=== PATIENT | female | born 1980 | race Caucasian/White ===

== ENCOUNTER 2017-09-10 07:09 | Inpatient (IN) | payer OTHER ==
[2017-09-10] MEDS ORDERED: Oxytocin in LR* 20 UNITS/1,000 ML BAG IVPB SCH ×2 (08:00→17:00)
[2017-09-10 08:56] LABS: Hematocrit 36 % (35-47); Hemoglobin 12.5 g/dl (12.0-16.0); Mean Corpuscular HGB Conc 35 g/dl (31-36); Mean Corpuscular Hemoglobin 35 pg (27-31); Mean Corpuscular Volume 99 fL (80-97); Mean Platelet Volume 8 um3 (7.4-10.4); Red Blood Count 3.62 10^6/ul (4.0-5.4); Red Cell Distribution Width 13 % (10.5-15)
[2017-09-10 10:00] LABS: Benzodiazepine Urine Screen None Detected (None Detect)
[2017-09-10] MEDS ORDERED: Witch Hazel PAD* JAR TOPICAL PRN (16:14)
[2017-09-10] MEDS ORDERED: Glycerin ADULT SUPP PR PRN (16:14)
[2017-09-10] MEDS ORDERED: Acetaminophen TAB* 325 MG PO PRN (16:14)
[2017-09-10] MEDS ORDERED: Dibucaine 1% 28.35 GM TUBE PR PRN (16:14)
[2017-09-10] MEDS: Docusate CAP* 100 MG PO SCH (21:02)
[2017-09-10] MEDS: Ibuprofen TAB* 600 MG PO PRN (21:03)
[2017-09-10] MEDS: Simethicone TAB* 80 MG TAB.CHEW PO SCH ×3 (23:01→23:03)
[2017-09-11] MEDS: Ibuprofen TAB* 600 MG PO PRN ×3 (03:33→15:49)
[2017-09-11] MEDS ORDERED: Influenza VAC *QUAD* 2017-18* 0.5 ML SYRINGE IM ONE (09:00)
[2017-09-11] MEDS: Buprenorphine TAB* 2 MG TAB.SL PO SCH ×2 (09:35→21:03)
[2017-09-11] MEDS: Docusate CAP* 100 MG PO SCH ×3 (09:36→21:03)
[2017-09-11] MEDS: Prenatal Vitamin TAB PO SCH (09:37)
[2017-09-11 09:45] LABS: Hematocrit 33 % (35-47); Hemoglobin 11.1 g/dl (12.0-16.0); Mean Corpuscular HGB Conc 34 g/dl (31-36); Mean Corpuscular Hemoglobin 34 pg (27-31); Mean Corpuscular Volume 101 fL (80-97); Mean Platelet Volume 8 um3 (7.4-10.4); Red Blood Count 3.22 10^6/ul (4.0-5.4); Red Cell Distribution Width 13 % (10.5-15); White Blood Count 9.3 10^3/ul (3.5-10.8)
[2017-09-11] MEDS: buPROPion SR TAB.SR* 150 MG PO SCH (13:09)
[2017-09-11] MEDS ORDERED: buPROPion SR TAB.SR* 100 MG PO SCH (18:00)
[2017-09-12 08:09] VITALS: BP 98/66
[2017-09-12] MEDS: Ferrous Gluconate TAB* 324 MG TAB PO SCH (08:28)
[2017-09-12] MEDS: Prenatal Vitamin TAB PO SCH (08:38)
[2017-09-12] MEDS: Docusate CAP* 100 MG PO SCH (08:39)
[2017-09-12] MEDS: Ibuprofen TAB* 600 MG PO PRN (08:40)
[2017-09-12] MEDS: buPROPion SR TAB.SR* 150 MG PO SCH (08:58)
[2017-09-12] MEDS: Buprenorphine TAB* 2 MG TAB.SL PO SCH (08:58)
== END 2017-09-12 13:55 | disposition home or self-care (01) | DRG 560 ==
LOC: MCHOBOUT 07:09 → MCHOB 07:52
PROVIDERS: ADMIT Obstetrics & Gynecology; ATTEND Obstetrics & Gynecology
PROC: 10907ZC Drainage of Amniotic Fluid, Therapeutic from Products of Conception, Via Natural or Artificial Opening (ICD-10-PCS; principal; 2017-09-10)
PROC: 10E0XZZ Delivery of Products of Conception, External Approach (ICD-10-PCS; 2017-09-10)
PROC: 4A1HX4Z Monitoring of Products of Conception, Cardiac Electrical Activity, External Approach (ICD-10-PCS; 2017-09-10)
PROC: 0HQ9XZZ Repair Perineum Skin, External Approach (ICD-10-PCS; 2017-09-10)
DX: O98.42 Viral hepatitis complicating childbirth (principal); B19.20 Unspecified viral hepatitis C without hepatic coma; O99.334 Smoking (tobacco) complicating childbirth; F17.200 Nicotine dependence, unspecified, uncomplicated; O99.824 Streptococcus B carrier state complicating childbirth; Z3A.39 39 weeks gestation of pregnancy; Z37.0 Single live birth; Z88.1 Allergy status to other antibiotic agents; O70.0 First degree perineal laceration during delivery
CPT/HCPCS: 36415; 80307; 85025; 86850; 86900; 86901; A9270-GY; J2540